=== PATIENT | female | born 1970 | race Asian ===

== ENCOUNTER 2021-06-03 17:14 | Emergency (ER) | payer OTHER ==
[~2021-06-03] VITALS: Ht 162.6 cm; Wt 59.0 kg
[2021-06-03] MEDS ORDERED: TRAMADOL HCL 50 MG TAB PO STA (18:31)
[2021-06-03] MEDS ORDERED: LISINOPRIL10 MG PO (18:38)
[2021-06-03] MEDS ORDERED: PREDNISONE20 MG PO (18:38)
[2021-06-03] MEDS ORDERED: ULTRAM 50MG50 MG PO (19:47)
== END 2021-06-03 20:25 | disposition home or self-care (01) ==
LOC: FSED 18:35
DX: S93.401A Sprain of unspecified ligament of right ankle, initial encounter (principal); W18.40XA Slipping, tripping and stumbling without falling, unspecified, initial encounter; I10 Essential (primary) hypertension; Z88.2 Allergy status to sulfonamides; Z88.8 Allergy status to other drugs, medicaments and biological substances
CPT/HCPCS: 99283